=== PATIENT | male | born 1990 | race Caucasian/White ===

== ENCOUNTER 2017-01-23 01:41 | Emergency (ER) | payer OTHER ==
[~2017-01-23] VITALS: Ht 182.9 cm; Wt 107.5 kg
[~2017-01-23 01:41] MED LIST: METHADONE10 MG PO; NAPROSYN500 MG PO; NOHOMEMEDS; TRAMADOL HCL50 MG PO; VALIUM2 MG PO
[2017-01-23] MEDS ORDERED: PEN-VEE K,VEET500 MG PO (02:07)
[2017-01-23] MEDS ORDERED: PERCOCET 5/31 TABLET PO (02:07)
[2017-01-23] MEDS ORDERED: MOTRIN600 MG PO (02:07)
[2017-01-23 02:20] VITALS: BP 130/90
== END 2017-01-23 02:20 | disposition home or self-care (01) ==
LOC: EME 01:41
DX: K08.89 Other specified disorders of teeth and supporting structures (principal); R68.84 Jaw pain; K02.9 Dental caries, unspecified; F17.200 Nicotine dependence, unspecified, uncomplicated
CPT/HCPCS: 99281; 99284

== ENCOUNTER 2017-06-03 11:21 | Emergency (ER) | payer OTHER ==
[~2017-06-03] VITALS: Ht 182.9 cm; Wt 108.2 kg
[~2017-06-03 11:21] MED LIST changes: +MOTRIN600 MG PO; +PEN-VEE K,VEET500 MG PO; +PERCOCET 5/31 TABLET PO
[2017-06-03] MEDS ORDERED: ROXICODONE5 MG PO (15:52)
[2017-06-03 16:07] VITALS: BP 113/76
== END 2017-06-03 16:08 | disposition home or self-care (01) ==
LOC: EME 11:21
DX: M54.5 Low back pain (principal); G89.29 Other chronic pain; F17.200 Nicotine dependence, unspecified, uncomplicated
CPT/HCPCS: 99281; 99283